=== PATIENT | female | born 1955 | race Hispanic/Latino ===

== ENCOUNTER 2016-08-14 14:12 | Emergency (ER) | payer OTHER ==
--- NOTE | 2016-08-14 16:26 | Emergency Department Report ---
HPI - General Chief Complaint: High BP Time Seen by Provider: 08/14/16 16:06 - HPI HPI: This is a 61-year-old female presents to the emergency department from her primary care doctor's office with complaint of elevated blood pressure. The patient has a history of hypertension and is on valsartan which she has been taking compliantly. When she went to the primary care doctor's office, Dr. hughes, which she went for the first time, her blood pressure was 200/ 102. She denies any chest pain, headache, vision change, slurred speech, shortness of breath. She was given clonidine 0.1 mg and 10 mg of amlodipine in the office prior to presentation. She also has a history of diabetes and a history of bilateral partial knee replacements. ED Past Medical Hx - Past Medical History Previous Medical History?: Yes Hx Hypertension: Yes Hx Diabetes: Yes - Surgical History Additional Surgical History: yokasta partial knee replacement - Social History Smoking Status: Never Smoker Substance Use Type: None - Medications Home Medications: Home Medications Medication Instructions Recorded Confirmed Last Taken Type Aspirin BABY CHEW TAB 81 mg PO DAILY 08/14/16 08/14/16 08/14/16 History Cholecalciferol (Vitamin D3) 2,000 unit PO QDAY 08/14/16 08/14/16 08/14/16 History [Vitamin D3] Fenofibrate [Tricor] 145 mg PO QDAY 08/14/16 08/14/16 08/14/16 History Insulin Glargine [Lantus VIAL] 35 unit SUB-Q QHS 08/14/16 08/14/16 08/13/16 History Janumet XR 50-500 mg 50 - 500 mg PO BID 08/14/16 08/14/16 08/14/16 History Ranitidine HCl [Acid Accounting Generalist] 150 mg PO BID 08/14/16 08/14/16 08/14/16 History Rosuvastatin Calcium 10 mg PO DAILY 08/14/16 08/14/16 08/14/16 History Tylenol Arthritis 2 tab PO BID 08/14/16 08/14/16 08/14/16 History Tylenol Pm Ex-Strength Caplet 2 tab PO QHS 08/14/16 08/14/16 08/13/16 History Valsartan [Diovan] 320 mg PO QDAY 08/14/16 08/14/1617 History Vit A/Vit C/Vit E/Zinc/Copper 1 each PO BID 08/14/16 08/14/16 08/14/16 History [Preservision Areds Tablet] diphenhydrAMINE [Benadryl CAP] 25 mg PO Q8HR PRN 08/14/16 08/14/16 Unknown History ED Review of Systems ROS: Stated complaint: HYPERTENSION Other details as noted in HPI Comment: All other systems reviewed and negative Constitutional: denies: chills, fever Eyes: denies: eye pain, eye discharge, vision change ENT: denies: ear pain, throat pain Respiratory: denies: cough, shortness of breath, wheezing Cardiovascular: denies: chest pain, palpitations Gastrointestinal: denies: abdominal pain, nausea, diarrhea Genitourinary: denies: urgency, dysuria, discharge Musculoskeletal: denies: back pain, joint swelling, arthralgia Skin: denies: rash, lesions Neurological: denies: headache, weakness, paresthesias Physical Exam - Physical Exam Vital Signs: Vital Signs 08/14/16 14:22 Temperature 97.8 F Pulse Rate 75 Respiratory 13 Rate Blood Pressure 167/89 Blood Pressure 167/89 [Left] O2 Sat by Pulse 94 Oximetry Physical Exam: GENERAL: The patient is well-developed well-nourished. HEENT: Normocephalic. Atraumatic. Extraocular motions are intact. Patient has moist mucous membranes. Pupils equal reactive to light bilaterally. NECK: Supple. No meningitic signs are noted. There is no adenopathy noted. CHEST/LUNGS: Clear to auscultation. There is no respiratory distress noted. HEART/CARDIOVASCULAR: Regular. There is no tachycardia. There is no gallop rub or murmur. ABDOMEN: Abdomen is soft, nontender. Patient has normal bowel sounds. There is no abdominal distention. SKIN: Skin is warm and dry. NEURO: The patient is awake, alert, and oriented. The patient is cooperative. The patient has no focal neurologic deficits. The patient has normal speech. Cranial nerves II through XII grossly intact. MUSCULOSKELETAL: There is no tenderness or deformity. There is no limitation range of motion. There is no evidence of acute injury. ED Course Vital Signs 08/14/16 14:22 Temperature 97.8 F Pulse Rate 75 Respiratory 13 Rate Blood Pressure 167/89 Blood Pressure 167/89 [Left] O2 Sat by Pulse 94 Oximetry ED Medical Decision Making - Lab Data Result diagrams: 08/14/16 16:40 08/14/16 16:40 - EKG Data -: EKG Interpreted by Me EKG shows normal: sinus rhythm, axis, intervals, QRS complexes (LVH, early repolarizatrion), ST-T waves Rate: normal - EKG Data When compared to previous EKG there are: previous EKG unavailable Interpretation: LVH - Medical Decision Making 61-year-old female was sent in by her PCP after she was found to be very hypertensive. She was given clonidine and amlodipine for coming in. Upon presentation the patient's blood pressure has steadily gotten better and her most recent blood pressure is 158/89. Patient is asymptomatic without any headache, chest pain, shortness of breath or any sequela of any hypertensive crisis. EKG does not show any signs of ST elevation RI, ischemia or dysrhythmia. Patient's labs are unremarkable. She already has valsartan and was recently prescribed amlodipine by her PCP. She appears stable for discharge home. She will follow-up with her primary care. Return to the ER with any worsening of her symptoms or any acute distress. We discussed dietary changes and keeping a blood pressure log. - Differential Diagnosis hypertensive crisis, DKA, renal insufficiency Critical Care Time: No Critical care attestation.: If time is entered above; I have spent that time in minutes in the direct care of this critically ill patient, excluding procedure time. ED Disposition Clinical Impression: Hyperglycemia Hypertension Qualifiers: Hypertension type: essential hypertension Qualified Code(s): I10 - Essential ( primary) hypertension Disposition: DISCHARGED TO HOME OR SELFCARE Is pt being admited?: No Condition: Stable Instructions: Hypertension (ED), Diabetic Hyperglycemia (ED) Additional Instructions: Please follow-up with your primary care doctor in the next few days. Return to the emergency department with any worsening of your blood pressure issues or any acute distress. Try to stay away from foods that are high in salt and caffeinated products. Keep a blood pressure log. Referrals: PRIMARY CARE, [Primary Care Provider] - [facility] Time of Disposition: 18:08
[2016-08-14 17:26] VITALS: BP 158/89
[2016-08-14 17:27] LABS: Anion Gap 18 mmol/L; BUN/Creatinine Ratio 13.33; Blood Urea Nitrogen 12 mg/dL (7-17); Calcium 9.6 mg/dL (8.4-10.2); Carbon Dioxide 25 mmol/L (22-30); Chloride 102.1 mmol/L (98-107); Glucose 207 mg/dL (65-100); Potassium 4.4 mmol/L (3.6-5.0); Sodium 141 mmol/L (137-145)
[2016-08-14 17:47] LABS: Basophils % (Auto) 0.7 % (0.0-1.8); Eosinophils % (Auto) 1.4 % (0.0-4.3); Hematocrit 40.6 % (30.3-42.9); Hemoglobin 13.2 gm/dl (10.1-14.3); Mean Corpuscular HGB Conc 33 % (30-34); Mean Corpuscular Hemoglobin 31 pg (28-32); Mean Corpuscular Volume 94 fl (79-97); Platelet Count 398 K/mm3 (140-440); Red Blood Count 4.33 M/mm3 (3.65-5.03); Red Cell Distribution Width 12.6 % (13.2-15.2); White Blood Count 10.6 K/mm3 (4.5-11.0)
== END 2016-08-14 18:08 | disposition home or self-care (01) ==
LOC: ED 14:12
DX: I10 Essential (primary) hypertension (principal); E11.65 Type 2 diabetes mellitus with hyperglycemia; Z79.82 Long term (current) use of aspirin; Z79.4 Long term (current) use of insulin
CPT/HCPCS: 36415; 80048; 85025; 93005; 93010; 99284